=== PATIENT | female | born 1990 | race Caucasian/White ===

== ENCOUNTER 2021-12-23 07:37 | Inpatient (IN) ==
[2021-12-23] MEDS ORDERED: OXYTOCIN 30 UNITS/500 ML BAG IV PRN ×3 (08:27→20:47)
[2021-12-23] MEDS ORDERED: LACTATED RINGER'S 1,000 ML IV PRN (08:27)
[2021-12-23 08:50] LABS: Hematocrit (blood only) 34.2 % (37-47); Hemoglobin 11.8 g/dL (12.0-16.0); Mean Corpuscular Hemoglobin 32.1 pg (25-34); Mean Corpuscular Hgb Conc 34.5 g/dL (32-36); Mean Corpuscular Volume 92.9 fL (80-100); Mean Platelet Volume 9.9 fL (7.4-10.4); Platelet Count 184 K/uL (130-400); RDW Coefficient of Variation 14.2 % (11.5-14.5); RDW Standard Deviation 48.5 fL (36.4-46.3); Red Blood Count 3.68 M/uL (4.2-5.4); White Blood Count 8.09 K/uL (4.8-10.8)
[2021-12-23] MEDS ORDERED: SODIUM CHLORIDE 0.9% 250 ML IV PRN (08:51)
[2021-12-23] MEDS ORDERED: miSOPROStoL 50 MCG TAB PO SCH (09:30)
--- NOTE | 2021-12-23 09:48 | Labor Progress Brief Note ---
Date of Service December 23, 2021 Assessment & Plan (1) GBS (group B Streptococcus carrier), +RV culture, currently : Plan: Antibx in active labor (2) Tobacco use affecting in third trimester, antepartum: (3) Obesity: (4) Gestational diabetes mellitus (GDM): Plan: pharmacy consult when in active labor for insulin contro Admission and Anticipated Discharge Date Admission Date: December 23, 2021 Results & Data ([facility]) Vital Signs (Past 12 Hours) Vital Signs Temp Pulse Resp BP 12/23/21 07:44 36.5 C 97 H 20 116/64
--- NOTE | 2021-12-23 09:51 | Labor Progress Brief Note ---
Date of Service December 23, 2021 Assessment & Plan (1) Gestational diabetes mellitus (GDM): Plan: Met pt and spouse Reviewed H&P with pt Bedside sono; VT VE: 1-2.60.-3 Plan Cytotec Q4 Antibx for GBS when active insulin protocol when in active labor Admission and Anticipated Discharge Date Admission Date: December 23, 2021 Results & Data ([facility]) Vital Signs (Past 12 Hours) Vital Signs Temp Pulse Resp BP 12/23/21 07:44 36.5 C 97 H 20 116/64
[2021-12-23] MEDS: miSOPROStoL 50 MCG TAB PO SCH ×3 (14:36→20:58)
[2021-12-23] MEDS ORDERED: PENICILLIN G POTASSIUM 6 MU in DEXTROSE 5% 250 ML IV ONE (17:15)
[2021-12-23] MEDS: LACTATED RINGER'S 1,000 ML IV PRN (17:28)
--- NOTE | 2021-12-23 20:47 | Obstetrical Progress Note ---
Date of Service December 23, 2021 Assessment & Plan (1) Obesity: Plan: Pt doing well FHR ; CAT1 Ctx 2-3mins VR 50/post will start Pitocin augmentation Admission and Anticipated Discharge Date Admission Date: December 23, 2021 Results & Data ([facility]) Vital Signs (Past 12 Hours) Vital Signs Temp Pulse Resp BP 12/23/21 19:05 82 115/70 12/23/21 15:39 36.6 C 93 H 20 124/68 12/23/21 15:26 79 132/67 12/23/21 15:09 86 110/59 L 12/23/21 14:56 91 H 114/57 L 12/23/21 14:39 98 H 131/58 L 12/23/21 12:09 36.9 C 86 20 110/56 L 12/23/21 10:51 97 H 16 105/59 L 12/23/21 10:37 91 H 101/58 L 12/23/21 10:22 82 102/59 L 12/23/21 10:06 85 120/59 L 12/23/21 09:50 88 109/57 L
[2021-12-23] MEDS ORDERED: GLUCOSE 40% GEL 15 GM TUBE PO PRN (21:00)
[2021-12-23] MEDS ORDERED: GLUCAGON FOR INJ 1 MG VIAL IM PRN (21:00)
[2021-12-23] MEDS ORDERED: DEXTROSE 50% 50 ML SYRINGE IV PRN (21:00)
[2021-12-23] MEDS ORDERED: CARBOHYDRATES FOR HYPOGLYCEMIA PO PRN (21:00)
[2021-12-23] MEDS ORDERED: GLUCOSE 10 TABS/TUBE PO PRN (21:00)
[2021-12-23] MEDS ORDERED: INSULIN ASPART PER UNIT SC SCH (21:00)
[2021-12-23] MEDS: PENICILLIN G POTASSIUM 3 MU in DEXTROSE 5% 100 ML IV PRN (21:45)
[2021-12-24] MEDS: miSOPROStoL 50 MCG TAB PO SCH (00:31)
[2021-12-24] MEDS: PENICILLIN G POTASSIUM 3 MU in DEXTROSE 5% 100 ML IV PRN ×4 (01:40→13:42)
[2021-12-24] MEDS ORDERED: SODIUM CHLORIDE 0.9% 250 ML IV PRN (05:23)
[2021-12-24] MEDS: LACTATED RINGER'S 1,000 ML IV PRN ×3 (07:28→16:36)
[2021-12-24] MEDS: BUTORPHANOL TARTRATE 1 MG/ML VIAL IV PRN ×3 (09:56→14:54)
--- NOTE | 2021-12-24 14:05 | Labor Progress Brief Note ---
Date of Service December 24, 2021 Assessment & Plan Admission and Anticipated Discharge Date Admission Date: December 23, 2021 Physical Exam Genitourinary: Manual OB Exam: + cervical dilation 2 cm and 3 cm, + cervical effacement 60%, + station -2 and + amniotic fluid clear OB Exam Monitor Tracing: + external FHT monitor used, + external uterine monitor used, + category I and + normal FHT variability AROM with Amni-hook clear fluid Results & Data ([facility]) Vital Signs (Past 12 Hours) Vital Signs Temp Pulse Resp BP 12/24/21 13:02 36.8 C 69 16 92/51 L 12/24/21 12:00 66 101/51 L 12/24/21 11:00 36.6 C 64 16 106/55 L 12/24/21 10:05 65 16 113/59 L 12/24/21 09:00 36.8 C 69 20 116/59 L 12/24/21 08:00 79 20 105/55 L 12/24/21 07:08 37 C 81 20 141/86 H 12/24/21 06:59 81 139/86 12/24/21 06:40 36.7 C 12/24/21 05:59 77 141/80 H 12/24/21 05:00 80 153/88 H 12/24/21 04:30 36.7 C 20 12/24/21 03:58 86 128/68 12/24/21 03:12 83 136/87 12/24/21 02:06 78 124/72
[2021-12-24] MEDS ORDERED: ePHEDrine sulfate 50 MG/ML AMP ONE (15:19)
[2021-12-24] MEDS ORDERED: fentaNYL 2MCG/ML ROPIVACAINE 1.25MG/ML 100 ML BAG EPI ONE (15:20)
[2021-12-24] MEDS ORDERED: SODIUM CHLORIDE 0.9% INJ 10 ML VIAL ONE (15:20)
[2021-12-24] MEDS ORDERED: fentaNYL citrate 100 MCG/2 ML VIAL ONE (15:20)
[2021-12-24] MEDS ORDERED: BUPIVACAINE 0.25% 30 ML VIAL ONE (15:20)
[2021-12-24] MEDS ORDERED: ONDANSETRON INJ 2 MG/ML 2 ML VIAL IV PRN (17:29)
[2021-12-24] MEDS ORDERED: fentaNYL 2MCG/ML ROPIVACAINE 1.25MG/ML 100 ML BAG EPI PRN (17:29)
[2021-12-24] MEDS ORDERED: diphenhydrAMINE 50 MG/ML VIAL IV PRN (17:29)
[2021-12-24] MEDS ORDERED: NALOXONE HCL 0.4 MG/1 ML VIAL/CARP IV PRN (17:29)
[2021-12-24] MEDS ORDERED: NALBUPHINE HCL INJ 10 MG/ML AMP IV PRN (17:29)
[2021-12-24] MEDS ORDERED: ePHEDrine sulfate 50 MG/ML AMP IV PRN (17:29)
[2021-12-24] MEDS ORDERED: NALOXONE HCL 1 MG in SODIUM CHLORIDE 0.9% 1000ML 1,000 ML IV PRN (17:29)
--- NOTE | 2021-12-24 17:29 | Anesthesiology Consultation ---
Date of Service December 24, 2021 Assessment & Plan Chart Review Chart Review: Patient NOT seen in Pre Admission Testing and Acceptable Risk for Labor Epidural Consults Requested none ASA ASA2 Proposed Anesthesia Anesthesia Type: Labor Epidural Risk / Benefits Reviewed With: PT / POA / Parent / Guardian, Accepts Plan and Informed Consent Obtained History Height/Weight Height: 5 ft 3 in Weight: 106.503 kg Allergies Allergy/AdvReac Type Severity Reaction Status Date / Time No Known Drug Allergies AdvReac Mild Unknown Verified 12/17/21 07:22 Medications Home Medications Medication Instructions Recorded Confirmed Last Taken insulin glargine 100 unit/mL 6 unit SUBCUT DAILY 12/17/21 12/23/21 12/22/21 07:00 subcutaneous cartridge iron,carbonyl 65 mg-vitamin C 125 1 tab PO BID 12/17/21 12/23/21 12/22/21 07:00 mg tablet,delayed release (Vitron-C) prenat.vits,john,lbw-ldaw-qekig 1 tab PO DAILY 12/17/21 12/23/21 12/22/21 07:00 vitamin B12 1,000 mcg-folic acid See Rx Instructions .ROUTE .COMPLEX 12/17/21 12/23/21 12/22/21 07:00 400 mcg sublingual lozenge vitamin B6-vitamin E-magnesium See Rx Instructions .ROUTE .COMPLEX 12/17/21 12/23/21 12/22/21 07:00 tablet Active Medications Generic Name Dose Route Start Last Admin Trade Name Freq PRN Reason Stop Dose Admin Butorphanol Tartrate 1 mg 12/24/21 09:36 12/24/21 14:54 Butorphanol Tartrate 1 Mg/Ml Vial IV 01/23/22 09:35 1 mg Q2H PRN Administration Pain Lactated Ringer's 1,000 mls @ 125 mls/hr 12/23/21 11:27 12/24/21 16:36 Lr IV 01/22/22 11:26 125 mls/hr .Q8H PRN Administration L&D Protocol Protocol Oxytocin 30 units in 500 mls @ 333.333 mls/hr 12/23/21 11:27 12/24/21 17:15 Pitocin IV 01/22/22 11:26 20 units/hr .Q1H30M PRN 333.3 mls/hr Bleeding Control Administration Protocol 20 UNITS/HR Penicillin G Potassium 3 mu/ 106 mls @ 100 mls/hr 12/23/21 19:55 12/24/21 13:42 Dextrose IV 01/02/22 19:54 100 mls/hr Q4H PRN Administration GBS(+) Until Delivery Oxytocin 30 units in 500 mls @ 999 mls/hr 12/23/21 20:47 12/24/21 17:03 Pitocin IV 12/25/21 20:46 59.94 units/hr .Q31M PRN 999 mls/hr Labor Induction/Augmentation Titration Protocol 59.94 UNITS/HR Past Medical History Medical History (Updated 12/23/21 @ 07:54 by Rama Casillas, URBAN) Gestational diabetes mellitus (GDM) Iron deficiency anemia Kidney stones Obesity hematoma Tobacco use affecting in third trimester, antepartum Exercise / Class Metabolic Activity II 4-5 Yardwork/Stairs/Walk up hill Past Surgical History Surgical History (Updated 12/23/21 @ 07:54 by Rama Casillas RN) Hx of cholecystectomy (~09/04/13) [place] teeth removed Past Anesthesia History No Hx of Anesthesia Complications and No Family Hx of Anesthesia Complications History of PONV No Hx of PONV and No Hx of Motion Sickness Social History Smoking Status: Current every day smoker tobacco type: cigarettes Smoking cigarettes per day: 6 Do You Dip or Chew Tobacco: No Hx Alcohol Use: No Hx Substance Use: No substance use type: does not use Physical Exam Vital Signs Last Vital Signs Temp 36.4 C L 12/24/21 16:30 Pulse 83 12/24/21 17:21 Resp 20 12/24/21 16:30 BP 156/65 H 12/24/21 17:19 Pulse Ox 99 12/24/21 17:21 ENMT Mouth: no dentition abnormality Thyromental Distance: > or= 3.5 Finger Breadths Mallampati Class: II Neck normal visual inspection Respiratory normal respiratory effort Auscultation: lungs clear to auscultation bilaterally Cardiovascular Rate/Rhythm: regular rate and regular rhythm Psychiatric Orientation: alert Testing Laboratory Results 12/23/21 08:40 Blood Type B Negative 12/23/21 08:40 Antibody Screen NEGATIVE 12/23/21 08:40 12/24/21 12/24/21 12/24/21 16:27 14:25 12:13 POC Glucose 111 H 107 H 83 12/24/21 08:57 POC Glucose 85
--- NOTE | 2021-12-24 17:30 | Anesthesia Procedure Note ---
Date of Service December 24, 2021 Anesthesia Post Epidural Note Vital Signs Vital Signs: Temp Pulse Resp BP Pulse Ox 36.4 C L 83 20 156/65 H 99 12/24/21 16:30 12/24/21 17:21 12/24/21 16:30 12/24/21 17:19 12/24/21 17:21 Notes Mental Status: alert / awake / arousable Nausea / Vomiting: adequately controlled Pain: adequately controlled Airway Patency, RR, SpO2: stable & adequate BP & HR: stable & adequate Hydration State: stable & adequate Neuraxial Anesthesia: was administered and sensory block is resolving Anesthetic Complications: no major complications apparent and Pt Satisfied with anesthetic care Epidural: Removed without complications and With tip intact
--- NOTE | 2021-12-24 17:46 | Delivery Summary ---
Vaginal Delivery Summary Date of Service December 24, 2021 Vaginal Delivery Summary Delivery Note live female [place] with delayed cord clamping and Apgars 8/9 weight pending. True knot in cord x1 noted. Cord blood obtained followed by spontaneous delivery of intact placenta. No tears. EBL 150 ml. Final sponge and instrument count are correct. Mom and baby stable.
[2021-12-24] MEDS ORDERED: HYDROCORTISONE ACETATE 25 MG SUPP PR PRN (17:47)
[2021-12-24] MEDS ORDERED: OXYTOCIN 30 UNITS/500 ML BAG IV PRN (17:47)
[2021-12-24] MEDS ORDERED: IBUPROFEN 600 MG TAB PO PRN (17:47)
[2021-12-24] MEDS ORDERED: BENZOCAINE 20% AER SPR 82.5 GM CAN EXT PRN (17:47)
[2021-12-24] MEDS ORDERED: DIPHTHERIA/TETANUS/PERTUSSIS 0.5 ML SYR/VIAL IM ONE (17:47)
[2021-12-24] MEDS ORDERED: bisacodyL 10 MG SUPP PR PRN (17:47)
[2021-12-24] MEDS ORDERED: ACETAMINOPHEN 325 MG TAB PO PRN (17:47)
[2021-12-24] MEDS ORDERED: Nursing to Pharmacy Communication SCH (18:30)
[2021-12-24] MEDS ORDERED: NON-FORMULARY MEDICATION (Iron,Carbonyl-Vitamin C [Vitron-C] 65 mg iron- 125 mg Tablet,Del PO SCH (21:00)
[2021-12-24] MEDS: DOCUSATE SODIUM 100 MG CAP PO SCH (21:20)
[2021-12-25 06:55] LABS: Hematocrit (blood only) 32.5 % (37-47); Hemoglobin 10.9 g/dL (12.0-16.0); Mean Corpuscular Hemoglobin 31.4 pg (25-34); Mean Corpuscular Hgb Conc 33.5 g/dL (32-36); Mean Corpuscular Volume 93.7 fL (80-100); Mean Platelet Volume 9.9 fL (7.4-10.4); Platelet Count 190 K/uL (130-400); RDW Coefficient of Variation 14.1 % (11.5-14.5); RDW Standard Deviation 47.9 fL (36.4-46.3); Red Blood Count 3.47 M/uL (4.2-5.4); White Blood Count 10.17 K/uL (4.8-10.8)
[2021-12-25] MEDS ORDERED: NON-FORMULARY MEDICATION (Prenat.Vits,Cal,Min-Iron-Folic Tablet) PO SCH (09:00)
--- NOTE | 2021-12-25 10:34 | Obstetrical Progress Note ---
Date of Service December 25, 2021 Assessment & Plan (1) Normal course: PPD #1 pt doing well No complaints wishes to be disch tomorrow Rh Neg- Rhogam Results & Data ([facility]) Vital Signs (Past 12 Hours) Vital Signs Temp Pulse Resp BP Pulse Ox 12/25/21 03:35 36.6 C 68 16 105/66 98 12/25/21 01:00 36.7 C 60 16 113/75 98
[2021-12-25] MEDS: FERROUS SULFATE 325 MG TAB PO SCH (10:38)
[2021-12-25] MEDS: DOCUSATE SODIUM 100 MG CAP PO SCH ×2 (10:39→20:20)
[2021-12-25] MEDS: PRENATAL VITAMIN 1 TAB PO SCH (10:39)
[2021-12-25] MEDS ORDERED: bisacodyL 5 MG TABEC PO SCH (20:00)
[2021-12-26 07:05] LABS: Hematocrit (blood only) 33.1 % (37-47); Hemoglobin 10.9 g/dL (12.0-16.0)
[2021-12-26] MEDS: FERROUS SULFATE 325 MG TAB PO SCH (07:47)
[2021-12-26] MEDS: PRENATAL VITAMIN 1 TAB PO SCH (07:47)
[2021-12-26] MEDS: DOCUSATE SODIUM 100 MG CAP PO SCH (07:47)
--- NOTE | 2021-12-26 10:58 | Obstetrical Progress Note ---
Date of Service December 26, 2021 Assessment & Plan (1) Normal course: PPD #2 pt doing well d/c home with instructions Results & Data ([facility]) Vital Signs (Past 12 Hours) Vital Signs Temp Pulse Resp BP Pulse Ox 12/26/21 07:50 36.6 C 85 19 109/71 12/25/21 23:35 36.6 C 82 18 115/76 95
== END 2021-12-26 11:40 | disposition home or self-care (01) | DRG 807 ==
LOC: 4S1 07:37 → 4E2 12-24 19:52